=== PATIENT | male | born 1970 | race Caucasian/White ===

== ENCOUNTER 2020-09-13 08:21 | Emergency (ER) | payer OTHER ==
[~2020-09-13] VITALS: Ht 172.7 cm; Wt 70.3 kg
[2020-09-13] MEDS ORDERED: ATORVASTATIN CA20 MG ×2 (08:47→08:48)
[2020-09-13] MEDS ORDERED: TAMS0.4C PO (12:58)
[2020-09-13] MEDS ORDERED: PERCOCET 10-321 EACH PO (12:58)
== END 2020-09-13 13:17 | disposition home or self-care (01) ==
LOC: ER 08:21
DX: R10.31 Right lower quadrant pain (principal)

== ENCOUNTER 2023-08-15 09:29 | Emergency (ER) | payer OTHER ==
[~2023-08-15] VITALS: Ht 175.3 cm; Wt 68.0 kg
[~2023-08-15 09:29] MED LIST: ATORVASTATIN CA20 MG; PERCOCET 10-321 EACH PO; TAMS0.4C PO
[2023-08-15] MEDS ORDERED: LEVOFLOXACIN750 MG PO (09:48)
[2023-08-15] MEDS ORDERED: ACETAMINOPHEN 325 MG TABLET PO STA (09:55)
[2023-08-15 10:52] LABS: HEMATOCRIT 43.5 % (39.0-48.0); HEMOGLOBIN 14.7 g/dL (13-16.00); MEAN CELL VOLUME 89.1 fL (80.0-100.00); MEAN CORPUSCULAR HEMOGLOBIN 30.1 pg (27.00-32.0); MEAN CORPUSCULAR HGB CONC 33.8 g/dl (32.0-36.0); PLATELET COUNT 355 K/uL (150-450); RED BLOOD COUNT 4.88 M/uL (4.00-6.00)
== END 2023-08-15 11:54 | disposition home or self-care (01) ==
LOC: ER 09:29
PROVIDERS: General Practice
DX: J32.9 Chronic sinusitis, unspecified (principal); R51.9 Headache, unspecified; Z88.6 Allergy status to analgesic agent